=== PATIENT | female | born 1970 ===

== ENCOUNTER 2021-10-18 07:31 | Day surgery (SDC) | payer OTHER ==
[~2021-10-18 07:31] MED LIST: LEXAPRO5 MG PO; RESTORIL15 M1 PO
== END 2021-10-18 17:50 | disposition home or self-care (01) ==
LOC: CIR.AMB 07:31
PROVIDERS: ATTEND Orthopaedic Surgery Hand Surgery
DX: M19.031 Primary osteoarthritis, right wrist (principal); J45.909 Unspecified asthma, uncomplicated; Z20.822 Contact with and (suspected) exposure to COVID-19
CPT/HCPCS: 25805; L8699